=== PATIENT | male | born 1945 | race Caucasian/White ===

== ENCOUNTER 2018-02-02 10:26 | Emergency (ER) | payer MEDICARE ==
[2018-02-02 10:35] VITALS: RESP 18
[2018-02-02] MEDS ORDERED: ONDANSETRON 4 MG/2 ML VIAL IVP STA (11:14)
[2018-02-02] MEDS ORDERED: SODIUM CHLORIDE 0.9% 1,000 ML IV STA (11:14)
[2018-02-02] MEDS ORDERED: ACETAMINOPHEN IV (For NPO) 1,000 MG in EMPTY BAG 1 BAG IVPB STA (11:15)
[2018-02-02 11:37] LABS: Basophils % (A) 0 %; Eosinophils # (A) 0.1 k/uL (0-0.7); Eosinophils % (A) 1 %; HCT 45.3 % (39.0-53.0); HGB 15.6 gm/dL (13.0-17.5); Lymphocytes # (A) 1.1 k/uL (1.0-4.8); Lymphocytes % (A) 12 %; MCH 30.2 pg (25.0-35.0); MCHC 34.5 g/dL (31.0-37.0); MCV 87.8 fL (80.0-100.0); Mean Platelet Volume 7.2; Monocytes # (A) 0.9 k/uL (0-1.0); Monocytes % (A) 10 %; Neutrophils # (A) 6.8 k/uL (1.3-7.7); Neutrophils % (A) 75 %; Platelet Count 159 k/uL (150-450); RBC 5.16 m/uL (4.30-5.90); RDW 13.8 % (11.5-15.5); WBC 9.1 k/uL (3.8-10.6)
[2018-02-02 11:43] LABS: ALT 62 U/L (21-72); AST 35 U/L (17-59); Albumin 4.3 g/dL (3.5-5.0); Alkaline Phosphatase 69 U/L (38-126); Amylase 56 U/L (30-110); Anion Gap 14 mmol/L; Blood Urea Nitrogen 20 mg/dL (9-20); Calcium 8.9 mg/dL (8.4-10.2); Carbon Dioxide 25 mmol/L (22-30); Chloride 97 mmol/L (98-107); Glucose 106 mg/dL (74-99); Lipase 67 U/L (23-300); Potassium 3.8 mmol/L (3.5-5.1); Sodium 136 mmol/L (137-145); Total Bilirubin 1.4 mg/dL (0.2-1.3); Total Protein 6.6 g/dL (6.3-8.2)
[2018-02-02 11:46] LABS: Appearance,Urine Clear (Clear); Bilirubin,Urine Negative (Negative); Blood,Urine Trace (Negative); Color,Urine Light Yellow; Glucose,Urine (UA) Negative (Negative); Ketones,Urine Negative (Negative); Leukocyte Esterase,Urine Negative (Negative); Nitrite,Urine Negative (Negative); Protein,Urine Negative (Negative); RBC,Urine 1 /hpf (0-5); Specific Gravity,Urine 1.005 (1.001-1.035); Urobilinogen,Urine <2.0 mg/dL (<2.0)
--- NOTE | 2018-02-02 11:46 | XR ---
EXAMINATION TYPE: XR chest 2V DATE OF EXAM: 02/02/2018 COMPARISON: NONE TECHNIQUE: PA and lateral views submitted. HISTORY: Shortness of breath FINDINGS: The lungs are clear and there is no pneumothorax, pleural effusion, or focal pneumonia. Biapical pl eural thickening. Atherosclerotic change aorta. No overt failure. Hypertrophic and degenerative blackwood e of the spine. IMPRESSION: 1. No acute process.
--- NOTE | 2018-02-02 12:04 | ED ---
General Adult HPI <Rush Rowley - Last Filed: 02/02/18 13:13> - General Source: patient, RN notes reviewed Mode of arrival: ambulatory Limitations: no limitations <Javan Proctor - Last Filed: 02/02/18 13:16> - General Chief complaint: Abdominal Pain Stated complaint: Headaches-came from [facility] Time Seen by Provider: 02/02/18 10:59 - History of Present Illness Initial comments: Patient 72-year-old male presenting to the emergency room today with a chief complaint of abdominal pain that started yesterday. Patient does admit that he had a difficult time having a bowel movement yesterday. States he was able have small bowel movement today. Does admit that he has been passing gas. He does have some cramping in his abdomen. Patient states that he was advised coming to the emergency room to rule out bowel obstruction. He denies any history of a previous bone structure. Denies any previous abdominal surgeries. Patient was unaware of fever at triage. He does admit that his had a headache that started approximately same time yesterday is abdominal pain. States is located on the top of his head. He denies any other complaints or symptoms currently. Patient denies any recent fever, chills, shortness of breath , chest pain, back pain, nausea or vomiting, numbness or tingling, dysuria or hematuria, diarrhea, headaches or visual changes, or any other complaints. ( Javan Proctor) - Related Data Home Medications Medication Instructions Recorded Confirmed Aspirin EC [Ecotrin Low Dose] 81 mg PO DAILY 02/02/18 02/02/18 Clopidogrel [Plavix] 72 mg PO DAILY 02/02/18 02/02/18 Metoprolol Succinate (ER) [Toprol 25 mg PO DAILY 02/02/18 02/02/18 Xl] Omeprazole [Omeprazole] 40 mg PO DAILY 02/02/18 02/02/18 predniSONE [predniSONE] 40 mg PO DAILY 02/02/18 02/02/18 Previous Rx's Medication Instructions Recorded Polyethylene Glycol 3350 [Miralax] 17 gm PO DAILY #5 packet 02/02/18 Allergies Allergy/AdvReac Type Severity Reaction Status Date / Time No Known Allergies Allergy Verified 02/02/18 10:35 Review of Systems ROS Other: All systems not noted in ROS Statement are negative. <Rush Rowley - Last Filed: 02/02/18 13:13> ROS Other: All systems not noted in ROS Statement are negative. <Javan Proctor - Last Filed: 02/02/18 13:16> ROS Statement: Those systems with pertinent positive or pertinent negative responses have been documented in the HPI. Past Medical History Past Medical History: Coronary Artery Disease (CAD), Hyperlipidemia, Hypertension History of Any Multi-Drug Resistant Organisms: None Reported Past Surgical History: Heart Catheterization With Stent Additional Past Surgical History / Comment(s): 7 stents Past Psychological History: No Psychological Hx Reported Smoking Status: Former smoker Past Alcohol Use History: Occasional Past Drug Use History: None Reported <Javan Proctor - Last Filed: 02/02/18 13:16> General Exam <Rush Rowley - Last Filed: 02/02/18 13:13> Limitations: no limitations <Javan Proctor - Last Filed: 02/02/18 13:16> - General Exam Comments Initial Comments: General: The patient is awake and alert, in no distress, and does not appear acutely ill. Eye: Pupils are equal, round and reactive to light, extra-ocular movements are intact. No nystagmus. There is normal conjunctiva bilaterally. No signs of icterus. Ears, nose, mouth and throat: There are moist mucous membranes and no oral lesions. Neck: The neck is supple, there is no tenderness or JVD. Cardiovascular: There is a regular rate and rhythm. No murmur, rub or gallop is appreciated. Respiratory: Lungs are clear to auscultation, respirations are non-labored, breath sounds are equal. No wheezes, stridor, rales, or rhonchi. Gastrointestinal: Mild tenderness in the left lower quadrant. No rebound tenderness. Guarding. No CVA tenderness. Musculoskeletal: Normal ROM, no tenderness. Strength 5/5. Sensation intact. Pulses equal bilaterally 2+. Neurological: A&O x 3. CN II-XII intact, There are no obvious motor or sensory deficits. Coordination appears grossly intact. Speech is normal. Skin: Skin is warm and dry and no rashes or lesions are noted. Psychiatric: Cooperative, appropriate mood & affect, normal judgment. (Javan Proctor) Vital Signs 02/02/18 02/02/18 10:31 12:49 Temperature 101.1 F H 100.8 F H Pulse Rate 64 62 Respiratory 18 18 Rate Blood Pressure 172/77 129/63 O2 Sat by Pulse 98 96 Oximetry Medical Decision Making - Lab Data Result diagrams: 02/02/18 11:21 02/02/18 11:21 <Rush Rowley - Last Filed: 02/02/18 13:13> - Lab Data Result diagrams: 02/02/18 11:21 02/02/18 11:21 <Javan Proctor - Last Filed: 02/02/18 13:16> - Medical Decision Making 72-year-old male presenting from clinic decreased bowel movements and concern for obstruction. Patient has passed gas throughout his stay in the emergency department. He has a small bowel movement today. On reevaluation he has no abdominal tenderness. Vital signs are stable however he does have a slight temperature at 101. There is no source for this on physical exam or laboratory testing. Normal white blood cell count, normal electrolytes. Urinalysis is clear. Chest x-ray negative. He has no symptoms to explain his fever. He will monitor this. He is given outpatient follow-up and will return with worsening or changing symptoms. (Rush Rowley) - Lab Data Lab Results 02/02/18 02/02/18 02/02/18 Range/Units 11:21 11:21 11:21 WBC 9.1 (3.8-10.6) k/uL RBC 5.16 (4.30-5.90) m/uL Hgb 15.6 (13.0-17.5) gm/dL Hct 45.3 (39.0-53.0) % MCV 87.8 (80.0-100.0) fL MCH 30.2 (25.0-35.0) pg MCHC 34.5 (31.0-37.0) g/dL RDW 13.8 (11.5-15.5) % Plt Count 159 (150-450) k/uL Neutrophils % 75 % Lymphocytes % 12 % Monocytes % 10 % Eosinophils % 1 % Basophils % 0 % Neutrophils # 6.8 (1.3-7.7) k/uL Lymphocytes # 1.1 (1.0-4.8) k/uL Monocytes # 0.9 (0-1.0) k/uL Eosinophils # 0.1 (0-0.7) k/uL Basophils # 0.0 (0-0.2) k/uL Sodium 136 L (137-145) mmol/L Potassium 3.8 (3.5-5.1) mmol/L Chloride 97 L (98-107) mmol/L Carbon Dioxide 25 (22-30) mmol/L Anion Gap 14 mmol/L BUN 20 (9-20) mg/dL Creatinine 0.90 (0.66-1.25) mg/dL Est GFR (CKD-EPI)AfAm >90 (>60 ml/min/1.73 sqM) Est GFR (CKD-EPI)NonAf 85 (>60 ml/min/1.73 sqM) Glucose 106 H (74-99) mg/dL Plasma Lactic Acid Vasyl 1.2 (0.7-2.0) mmol/L Calcium 8.9 (8.4-10.2) mg/dL Total Bilirubin 1.4 H (0.2-1.3) mg/dL AST 35 (17-59) U/L ALT 62 (21-72) U/L Alkaline Phosphatase 69 (38-126) U/L Total Protein 6.6 (6.3-8.2) g/dL Albumin 4.3 (3.5-5.0) g/dL Amylase 56 (30-110) U/L Lipase 67 (23-300) U/L Urine Color Urine Appearance (Clear) Urine pH (5.0-8.0) Ur Specific [place] (1.001-1.035) Urine Protein (Negative) Urine Glucose (UA) (Negative) Urine Ketones (Negative) Urine Blood (Negative) Urine Nitrite (Negative) Urine Bilirubin (Negative) Urine Urobilinogen (<2.0) mg/dL Ur Leukocyte Esterase (Negative) Urine RBC (0-5) /hpf 02/02/18 Range/Units 11:30 WBC (3.8-10.6) k/uL RBC (4.30-5.90) m/uL Hgb (13.0-17.5) gm/dL Hct (39.0-53.0) % MCV (80.0-100.0) fL MCH (25.0-35.0) pg MCHC (31.0-37.0) g/dL RDW (11.5-15.5) % Plt Count (150-450) k/uL Neutrophils % % Lymphocytes % % Monocytes % % Eosinophils % % Basophils % % Neutrophils # (1.3-7.7) k/uL Lymphocytes # (1.0-4.8) k/uL Monocytes # (0-1.0) k/uL Eosinophils # (0-0.7) k/uL Basophils # (0-0.2) k/uL Sodium (137-145) mmol/L Potassium (3.5-5.1) mmol/L Chloride (98-107) mmol/L Carbon Dioxide (22-30) mmol/L Anion Gap mmol/L BUN (9-20) mg/dL Creatinine (0.66-1.25) mg/dL Est GFR (CKD-EPI)AfAm (>60 ml/min/1.73 sqM) Est GFR (CKD-EPI)NonAf (>60 ml/min/1.73 sqM) Glucose (74-99) mg/dL Plasma Lactic Acid Vasyl (0.7-2.0) mmol/L Calcium (8.4-10.2) mg/dL Total Bilirubin (0.2-1.3) mg/dL AST (17-59) U/L ALT (21-72) U/L Alkaline Phosphatase (38-126) U/L Total Protein (6.3-8.2) g/dL Albumin (3.5-5.0) g/dL Amylase (30-110) U/L Lipase (23-300) U/L Urine Color Light Yellow Urine Appearance Clear (Clear) Urine pH 7.0 (5.0-8.0) Ur Specific [place] 1.005 (1.001-1.035) Urine Protein Negative (Negative) Urine Glucose (UA) Negative (Negative) Urine Ketones Negative (Negative) Urine Blood Trace H (Negative) Urine Nitrite Negative (Negative) Urine Bilirubin Negative (Negative) Urine Urobilinogen <2.0 (<2.0) mg/dL Ur Leukocyte Esterase Negative (Negative) Urine RBC 1 (0-5) /hpf Disposition <Rush Rowley - Last Filed: 02/02/18 13:13> Is patient prescribed a controlled substance at d/c from ED?: No Time of Disposition: 13:15 <Javan Proctor - Last Filed: 02/02/18 13:16> Clinical Impression: Abdominal pain, Headache Disposition: HOME SELF-CARE Condition: Good Instructions: Abdominal Pain (ED) Additional Instructions: Please use medication as discussed. Please follow-up with family doctor in the next 2 days. Please return to emergency room if the symptoms increase or worsen or for any other concerns. Prescriptions: Polyethylene Glycol 3350 [Miralax] 17 gm PO DAILY #5 packet Referrals: None,Stated [Primary Care Provider] - 1-2 days Andrea Lutz DO [STAFF PHYSICIAN] - 1-2 days Michel Lund MD [REFERRING] - 1-2 days
[2018-02-02 12:50] VITALS: PULSE 62
--- NOTE | 2018-02-02 12:55 | CT ---
EXAMINATION TYPE: CT abdomen pelvis w con DATE OF EXAM: 02/02/2018 COMPARISON: NONE HISTORY: Generalized pain with decreased bowel movements CT DLP: 707.4 mGycm, Automated Exposure Control for Dose Reduction was Utilized. CONTRAST: CT scan of the abdomen and pelvis is performed without oral but with IV Contrast, patient injected wi th 100 mL of Isovue 300. FINDINGS: LUNG BASES: Bilateral gynecomastia is present. There is three-vessel coronary artery calcification se en which is noted marker for coronary artery disease. LIVER/GB: No significant abnormality is appreciated. PANCREAS: No significant abnormality is seen. SPLEEN: No significant abnormality is seen. ADRENALS: No significant abnormality is seen. KIDNEYS: There are 2 simple appearing 4.0 cm cyst in the right kidney. There is symmetric cortical me dullary uptake and excretion from both kidneys without hydronephrosis seen bilaterally. BOWEL: Evaluation of bowel is slightly suboptimal secondary to lack of enteric contrast. There is sm all hiatal hernia. There is no suspicious small or large bowel dilatation. PROSTATE/SEMINAL VESICLES: No gross abnormality seen. LYMPH NODES: No greater than 1cm abdominal or pelvic lymph nodes are appreciated. OSSEOUS STRUCTURES: There is multilevel spurring in the thoracic spine. There is mild to moderate dis c space narrowing at lumbosacral junction. There is moderate joint space loss and mild spurring in ant th hips. There is multilevel facet arthropathy in the lower lumbar spine. OTHER: There is mild to moderate calcified plaque of aorta extending into branch vessels. IMPRESSION: No bowel obstruction is seen. No significant acute finding is seen to account for patien t's clinical symptoms.
[2018-02-02 13:25] VITALS: BP 146/76; TEMP 99.2
== END 2018-02-02 13:25 | disposition home or self-care (01) ==
LOC: EC 10:26
DX: R10.32 Left lower quadrant pain (principal); R51 Headache; R50.9 Fever, unspecified; I25.10 Atherosclerotic heart disease of native coronary artery without angina pectoris; E78.5 Hyperlipidemia, unspecified; I10 Essential (primary) hypertension; Z95.5 Presence of coronary angioplasty implant and graft; Z79.02 Long term (current) use of antithrombotics/antiplatelets; Z79.52 Long term (current) use of systemic steroids; Z79.82 Long term (current) use of aspirin; Z79.899 Other long term (current) drug therapy; Z87.891 Personal history of nicotine dependence
CPT/HCPCS: 99284; 96374; 96375; 96361 ×2; 36415; 80053; 82150; 83605; 83690; 85025; 81001; 87086; 71046; 74177; J2405; J0131; Q9967

== ENCOUNTER 2018-02-05 12:14 | Emergency (ER) | payer MEDICARE ==
[2018-02-05] MEDS ORDERED: MAG HYDROX/AL HYDROX/SIMETH 30 ML, HYOSCYAMINE ELIXIR 10 ML, CIMETIDINE HCL 300 MG, LID... PO STA ×4 (12:35)
[2018-02-05] MEDS ORDERED: chlorproMAZINE 25 MG/ML 2 ML AMP IM STA (12:38)
[2018-02-05 13:10] VITALS: RESP 18; TEMP 98.2
--- NOTE | 2018-02-05 13:33 | ED ---
General Adult HPI - General Chief complaint: Recheck/Abnormal Lab/Rx Stated complaint: hiccups Time Seen by Provider: 02/05/18 12:28 Source: patient, RN notes reviewed Mode of arrival: ambulatory Limitations: no limitations - History of Present Illness Initial comments: 72-year-old male presents from chief complaint of hiccups since 01/28/2018. 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 Patient states he was treated with steroids for gout. Patient denies any prior issues like this. Patient states her constant symptoms worsen hours. Patient was seen in emergency department 3 days ago for possible bowel obstruction had CT labwork all unremarkable. Patient states has not given any medication for hiccups at that time. Patient states he was discharged with MiraLAX for constipation. Patient denies any fever, chills, pain. Patient states nothing [id number] or at home had helped. - Related Data Home Medications Medication Instructions Recorded Confirmed Aspirin EC [Ecotrin Low Dose] 81 mg PO DAILY 02/02/18 02/05/18 Clopidogrel [Plavix] 72 mg PO DAILY 02/02/18 02/05/18 Metoprolol Succinate (ER) [Toprol 25 mg PO DAILY 02/02/18 02/05/18 Xl] Omeprazole [Omeprazole] 40 mg PO DAILY 02/02/18 02/05/18 Baclofen [Baclofen] 10 mg PO BID 02/05/18 02/05/18 Previous Rx's Medication Instructions Recorded Polyethylene Glycol 3350 [Miralax] 17 gm PO DAILY #5 packet 02/02/18 chlorproMAZINE [Thorazine] 25 mg PO TID PRN #10 tablet 02/05/18 Allergies Allergy/AdvReac Type Severity Reaction Status Date / Time No Known Allergies Allergy Verified 02/05/18 12:41 Review of Systems ROS Statement: Those systems with pertinent positive or pertinent negative responses have been documented in the HPI. ROS Other: All systems not noted in ROS Statement are negative. Past Medical History Past Medical History: Coronary Artery Disease (CAD), Hyperlipidemia, Hypertension History of Any Multi-Drug Resistant Organisms: None Reported Past Surgical History: Heart Catheterization With Stent Additional Past Surgical History / Comment(s): 7 stents Past Psychological History: No Psychological Hx Reported Smoking Status: Former smoker Past Alcohol Use History: Occasional Past Drug Use History: None Reported General Exam Limitations: no limitations General appearance: alert, in no apparent distress Head exam: Present: atraumatic, normocephalic, normal inspection ENT exam: Present: normal oropharynx Neck exam: Present: normal inspection. Absent: tenderness, meningismus, lymphadenopathy Respiratory exam: Present: normal lung sounds bilaterally. Absent: respiratory distress, wheezes, rales, rhonchi, stridor Cardiovascular Exam: Present: regular rate, normal rhythm, normal heart sounds. Absent: systolic murmur, diastolic murmur, rubs, gallop, clicks GI/Abdominal exam: Present: soft, normal bowel sounds. Absent: distended, tenderness, guarding, rebound, rigid Skin exam: Present: warm, dry, intact, normal color. Absent: rash Course Vital Signs 02/05/18 02/05/18 12:18 13:09 Temperature 98.6 F 98.2 F Pulse Rate 60 58 L Respiratory 20 18 Rate Blood Pressure 136/74 148/70 O2 Sat by Pulse 99 99 Oximetry - Reevaluation(s) Reevaluation #1: 02/05/18 13:52 Patient was reevaluated at this time and states that his hands have resolved. Medical Decision Making - Medical Decision Making 72-year-old male present emergency department for headache goes. This most likely is induced by steroids. Patient was given Thorazine and GI cocktail which has resolved his hiccups. Disposition Clinical Impression: Intractable hiccups Disposition: HOME SELF-CARE Condition: Stable Instructions: Hiccups (ED) Additional Instructions: Please return to the Emergency Department if symptoms worsen or any other concerns. Prescriptions: chlorproMAZINE [Thorazine] 25 mg PO TID PRN #10 tablet PRN Reason: hiccups Is patient prescribed a controlled substance at d/c from ED?: No Referrals: None,Stated [Primary Care Provider] - 1-2 days Time of Disposition: 13:53
[2018-02-05 14:02] VITALS: BP 141/67; PULSE 55
== END 2018-02-05 14:01 | disposition home or self-care (01) ==
LOC: EC 12:14
DX: R06.6 Hiccough (principal); I10 Essential (primary) hypertension; Z87.891 Personal history of nicotine dependence; Z79.02 Long term (current) use of antithrombotics/antiplatelets; Z79.82 Long term (current) use of aspirin; Z79.899 Other long term (current) drug therapy
CPT/HCPCS: 99283; 96372; J3230